=== PATIENT | female | born 1995 | race Caucasian/White ===

== ENCOUNTER → 2017-08-08 | Outpatient (CLI) | payer OTHER ==
[~2017-08-08] VITALS: Ht 157.5 cm; Wt 53.4 kg
[~2017-08-08] MED LIST: ENDOCET 5-3251 EACH PO; IBUPROFEN800 MG PO; PRENATAL TABLE1 EAC3 PO
== END | disposition home or self-care (01) ==
LOC: IVINF 12:34
DX: Z31.82 Encounter for Rh incompatibility status (principal); Z3A.28 28 weeks gestation of pregnancy; Z67.41 Type O blood, Rh negative
CPT/HCPCS: J2790

== ENCOUNTER 2017-10-21 10:24 | Inpatient (IN) | payer OTHER ==
[~2017-10-21] VITALS: Ht 157.5 cm; Wt 58.5 kg
[2017-10-21] VITALS (21 sets, daily range): BP systolic 120–157; BP diastolic 58–91
[2017-10-21 11:23] LABS: HEMATOCRIT 32.4 % (36.0-46.0); HEMOGLOBIN 10.3 G/DL (11.9-15.5); MCHC 31.8 G/DL (30.0-36.0); MCV 75.3 FL (83-99); PLATELET COUNT 316 K/uL (156-360); RBC DIS.WIDTH-CV 13.5 % (11.8-14.6); RBC DIS.WIDTH-SD 36.4 % (39-53); WHITE BLOOD COUNT 10.5 K/uL (4.1-10.2)
[2017-10-21 11:47] LABS: ALBUMIN 3.3 G/DL (3.2-4.8); ALKALINE PHOSPHATASE 237 IU/L (3-129); ALT (GPT) 8 IU/L (3-49); AST (GOT) 13 IU/L (2-34); CHLORIDE 107 MEQ/L (99-109); CREATININE 0.6 MG/DL (0.6-1.3); GFR ESTIMATE (CALCULATED) > 59 mL/min/; GLUCOSE 81 mg/dL (70-99); POTASSIUM 3.6 MEQ/L (3.7-5.4); SODIUM 138 MEQ/L (136-147); TOTAL BILIRUBIN 0.3 MG/DL (0.0-1.0); TOTAL PROTEIN 5.9 G/DL (6.4-8.3); UREA NITROGEN (BUN) 6 mg/dL (9-23); URIC ACID 4.4 mg/dL (3.1-9.2)
[2017-10-21 12:06] LABS: UR CREATININE CONCENTRATION 64.1 MG/DL
[2017-10-21] MEDS ORDERED: IBUPROFEN800 MG PO (17:16)
[2017-10-22 07:45] VITALS: BP 133/75
[2017-10-23 00:19] LABS: BENZODIAZEPINES, URINE SCREEN Negative (200 ng/mL)
== END 2017-10-22 20:00 | disposition home or self-care (01) | DRG 767 ==
LOC: LDRP-OP 10:24 → 2WEST 10:25
PROVIDERS: Nurse Practitioner
DX: O73.0 Retained placenta without hemorrhage (principal); E28.2 Polycystic ovarian syndrome; Z3A.38 38 weeks gestation of pregnancy; Z37.0 Single live birth
CPT/HCPCS: 80053; 80306 90; 82570; 83030; 84156; 84550; 85027; 86850; 86900; 86901; C1755; J1050; J2790; J3010; J7120